=== PATIENT | male | born 1950 | race Caucasian/White ===

== ENCOUNTER 2017-02-07 02:30 | Inpatient (IN) | payer MEDICARE, BC ==
[2017-02-07] VITALS (14 sets, daily range): BP systolic 100–155; BP diastolic 57–74; PULSE 74–133; RESP 14–24; TEMP 96.9–98.7; O2SAT 91–100
[~2017-02-07] VITALS: Ht 182.9 cm; Wt 106.3 kg
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
[2017-02-07] MEDS ORDERED: ALLO100T PO (03:00)
[2017-02-07] MEDS ORDERED: VALS1TAB63 PO (03:00)
[2017-02-07] MEDS ORDERED: PRED5TAB PO (03:00)
[2017-02-07] MEDS ORDERED: ULOR80TA2 PO (03:00)
[2017-02-07] MEDS ORDERED: COLC1CAP3 PO (03:00)
[2017-02-07] MEDS ORDERED: ZOCO40TA PO (03:00)
[2017-02-07] MEDS ORDERED: METO25TA3 PO (03:00)
[2017-02-07] MEDS ORDERED: TELO250T PO (03:01)
[2017-02-07] MEDS ORDERED: DIGOXIN 0.5 MG/2 ML VIAL IV PUSH ONE (04:30)
[2017-02-07] MEDS ORDERED: SODIUM CHLORIDE 0.9% FLUSH 10 ML FLUSH IVF PRN (05:00)
[2017-02-07] MEDS ORDERED: NS + KCL 20 MEQ INJ 1,000 ML IV SCH (05:00)
[2017-02-07] MEDS ORDERED: ACETAMINOPHEN 650 MG SUPP PR PRN (05:00)
[2017-02-07] MEDS ORDERED: ONDANSETRON HCL 4 MG/2 ML VIAL IV PRN ×2 (05:00→07:15)
[2017-02-07] MEDS ORDERED: ACETAMINOPHEN 325 MG TAB PO PRN (05:00)
[2017-02-07] MEDS ORDERED: MORPHINE SULFATE 4 MG/ML INJ IV PUSH PRN (05:00)
[2017-02-07] MEDS ORDERED: MISCELLANEOUS NURSING INFORMATION XX SCH (07:15)
[2017-02-07] MEDS ORDERED: ENALAPRILAT 1.25 MG/ML VIAL IV PRN (07:15)
[2017-02-07] MEDS ORDERED: SODIUM CHLORIDE 0.9% FLUSH 10 ML FLUSH IV FLUSH PRN (07:15)
[2017-02-07] MEDS ORDERED: CHLORHEXIDINE GLUCONATE 2 % 1 PACK (2 CLOTHS) TOP PRN (07:15)
[2017-02-07] MEDS ORDERED: RESP: ALBUTEROL 2.5 MG/IPRATROPIUM 0.5 MG NEB (PRN) INH (07:15)
[2017-02-07] MEDS: RESP: ALBUTEROL 2.5 MG/IPRATROPIUM 0.5 MG NEB (SCH) NEB ×4 (08:14→20:00)
[2017-02-07] MEDS: METHOCARBAMOL 500 MG TAB PO SCH ×3 (08:16→21:37)
[2017-02-07] MEDS: FAMOTIDINE 20 MG TAB PO SCH ×2 (08:16→19:54)
[2017-02-07] MEDS: VALSARTAN 40 MG TAB PO SCH ×2 (08:16→20:02)
[2017-02-07] MEDS: predniSONE 5 MG TAB PO SCH (08:16)
[2017-02-07] MEDS: PRAVASTATIN SOD 80 MG TAB PO SCH ×2 (08:16→08:18)
[2017-02-07] MEDS: oxyCODONE/ACETAMINOPHEN 5 MG/325 MG TAB PO PRN ×2 (08:16→18:34)
[2017-02-07] MEDS: COLCHICINE 0.6 MG TAB PO SCH ×2 (08:16→08:30)
[2017-02-07] MEDS: ALLOPURINOL 100 MG TAB PO SCH (08:16)
[2017-02-07] MEDS: SODIUM CHLORIDE 0.9% FLUSH 10 ML FLUSH IV FLUSH SCH ×2 (08:17→19:55)
[2017-02-07] MEDS: LIDOCAINE HCL 5% PATCH T-DERMAL SCH (08:17)
[2017-02-07] MEDS: DOCUSATE SODIUM 50 MG/SENNA 8.6 MG TAB PO SCH ×2 (08:17→19:54)
[2017-02-07] MEDS: ULORIC 80 MG PO SCH (08:31)
[2017-02-07 09:00] LABS: BICARBONATE 20.7 MEQ/L (21.0-32.0); POTASSIUM 4.6 MEQ/L (3.5-5.1)
[2017-02-07 09:00] LABS: AUTOMATED NEUTROPHIL # 7.6 TH/MM3 (1.8-7.7); BASOPHIL % 0.2 % (0.0-2.0); EOSINOPHIL % 0.1 % (0.0-4.0); HEMATOCRIT 32.1 % (39.0-51.0); HEMO FLAGS DIFF FINAL; LYMPH % 9.1 % (9.0-44.0); LYMPHOCYTE # 0.8 TH/MM3 (1.0-4.8); MEAN CELL VOLUME 97.4 FL (80.0-100.0); MEAN CORPUSCULAR HEMOGLOBIN 31.7 PG (27.0-34.0); MEAN CORPUSCULAR HGB CONC 32.5 % (32.0-36.0); MONO % 9.3 % (0.0-8.0); NEUT % 81.3 % (16.0-70.0); PLATELET COUNT 139 TH/MM3 (150-450); RED CELL DISTRIBUTION WIDTH 14.5 % (11.6-17.2); WHITE BLOOD COUNT 9.3 TH/MM3 (4.0-11.0)
[2017-02-07] MEDS: METOPROLOL TARTRATE 25 MG TAB PO SCH (09:59)
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
--- NOTE | 2017-02-07 12:50 | RADRPT ---
EXAM DATE/TIME: 02/07/2017 10:54 [facility] COMPARISON: No previous studies available for comparison. INDICATIONS : Occlusion. MEDICAL HISTORY : Hypertension. Gout. Atrial fibrillation. Cerebrovascular accident. Hyperlipidemia. SURGICAL HISTORY : None. ENCOUNTER: Initial ACUITY: 1 day PAIN SCORE: 0/10 LOCATION: Bilateral neck PEAK SYSTOLIC VELOCITIES (cm/sec): ICA/CCA RATIO: Right: 1.2 Left: 1.3 ICA: Right: 106 Left: 124 CCA: Right: 140 Left: 116 ECA: Right: 116 Left: 143 VERTEBRAL: Right: 29 antegrade Left: 110 antegrade Elevated flow velocities and ICA/CCA ratios have been found to correlate with increased degrees of vessel stenosis, calculated as percentage of diameter relative to a normal segment of distal ICA/CCA FINDINGS: RIGHT CAROTID: No significant stenosis is visualized. There is minimal calcified plaque in the common carotid artery and there is noncalcified plaque in the carotid bulb. LEFT CAROTID: No significant stenosis is visualized. There is mild calcified and noncalcified plaque in the carotid bulb. VERTEBRAL ARTERIES: Antegrade flow is seen in both vertebral arteries. MISCELLANEOUS: None. CONCLUSION: 1. Mild carotid bulb calcification bilaterally. However, no significant stenosis is present within ei ther internal carotid artery (less than 50% stenosis). 2. There is antegrade flow within both vertebral arteries. Eh Borja MD on February 07, 2017 at 12:46 Board Certified Radiologist. This report was verified electronically.
--- NOTE | 2017-02-07 14:02 | EKG ---
Date Performed: 02/07/2017 Time Performed: 04:11:26 PTAGE: 66 years EKG: Supraventricular tachycardia, which may be a paroxysmal SVT versus atrial flutter Clinical correlation and follow-up tracings recommended ABNORMAL ECG NO PREVIOUS TRACING DOCTOR: Valeriy Hussein Interpretating Date/Time 02/07/2017 14:01:40
[2017-02-07] MEDS: chlordiazePOXIDE 25 MG CAP PO SCH ×2 (14:29→18:06)
[2017-02-07] MEDS: BACITRACIN TOP OINT 15 GM TUBE TOPICAL SCH ×2 (14:29→19:54)
[2017-02-07] MEDS: MULTIVITAMIN INJ 10 ML, THIAMINE INJ 100 MG, FOLIC ACID INJ 1 MG in SODIUM CHLORID 0.9%... IV SCH (16:09)
[2017-02-07] MEDS: MAGNESIUM HYDROXIDE SUSP 30 ML CUP PO SCH (19:55)
[2017-02-08] MEDS: oxyCODONE/ACETAMINOPHEN 10 MG/325 MG TAB PO PRN ×5 (03:20→22:02)
[2017-02-08 03:24] VITALS: BP 147/77; PULSE 68; RESP 18; TEMP 97; O2SAT 92
[2017-02-08] MEDS ORDERED: CHLORHEXIDINE GLUCONATE 2 % 1 PACK (2 CLOTHS) TOP SCH (04:00)
[2017-02-08] MEDS: METHOCARBAMOL 500 MG TAB PO SCH ×3 (05:09→22:02)
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
[2017-02-08] MEDS: RESP: ALBUTEROL 2.5 MG/IPRATROPIUM 0.5 MG NEB (SCH) NEB (07:24)
[2017-02-08 07:25] VITALS: O2SAT 95
[2017-02-08 07:45] LABS: AUTOMATED NEUTROPHIL # 4.9 TH/MM3 (1.8-7.7); BASOPHIL % 0.4 % (0.0-2.0); EOSINOPHIL # 0.1 TH/MM3 (0-0.4); EOSINOPHIL % 1.1 % (0.0-4.0); HEMO FLAGS DIFF FINAL; LYMPH % 14.8 % (9.0-44.0); LYMPHOCYTE # 0.9 TH/MM3 (1.0-4.8); MEAN CELL VOLUME 94.6 FL (80.0-100.0); MEAN CORPUSCULAR HGB CONC 33.8 % (32.0-36.0); MONO % 7.7 % (0.0-8.0); PLATELET COUNT 129 TH/MM3 (150-450); RED BLOOD COUNT 3.07 MIL/MM3 (4.50-5.90); RED CELL DISTRIBUTION WIDTH 14.1 % (11.6-17.2); WHITE BLOOD COUNT 6.4 TH/MM3 (4.0-11.0)
[2017-02-08 07:55] LABS: ALT (GPT) 27 U/L (12-78); ANION GAP 4 MEQ/L (5-15); AST (GOT) 14 U/L (15-37); BICARBONATE 26.1 MEQ/L (21.0-32.0); BLOOD UREA NITROGEN 20 MG/DL (7-18); CHLORIDE 108 MEQ/L (98-107); GLOMERULAR FILTRATION RATE 70 ML/MIN (>89); POTASSIUM 4.1 MEQ/L (3.5-5.1); SODIUM (NA) 138 MEQ/L (136-145)
[2017-02-08 07:57] LABS: ALKALINE PHOSPHATASE 42 U/L (45-117); TOTAL BILIRUBIN ADULT 0.4 MG/DL (0.2-1.0)
[2017-02-08 08:00] VITALS: BP 147/75; PULSE 71; RESP 19; TEMP 97.2; O2SAT 95
[2017-02-08] MEDS: predniSONE 5 MG TAB PO SCH (08:38)
[2017-02-08] MEDS: COLCHICINE 0.6 MG TAB PO SCH (08:39)
[2017-02-08] MEDS: VALSARTAN 40 MG TAB PO SCH ×2 (08:40→20:40)
[2017-02-08] MEDS: METOPROLOL TARTRATE 25 MG TAB PO SCH (08:40)
[2017-02-08] MEDS: ALLOPURINOL 100 MG TAB PO SCH (08:40)
[2017-02-08] MEDS: chlordiazePOXIDE 25 MG CAP PO SCH ×3 (08:40→17:40)
[2017-02-08] MEDS: FAMOTIDINE 20 MG TAB PO SCH ×2 (08:40→20:40)
[2017-02-08] MEDS: PRAVASTATIN SOD 80 MG TAB PO SCH (08:40)
[2017-02-08] MEDS: SODIUM CHLORIDE 0.9% FLUSH 10 ML FLUSH IV FLUSH SCH ×2 (08:41→20:40)
[2017-02-08] MEDS: DOCUSATE SODIUM 50 MG/SENNA 8.6 MG TAB PO SCH ×2 (08:41→20:40)
[2017-02-08] MEDS: ULORIC 80 MG PO SCH (08:42)
[2017-02-08] MEDS: LIDOCAINE HCL 5% PATCH T-DERMAL SCH (08:43)
[2017-02-08] MEDS: BACITRACIN TOP OINT 15 GM TUBE TOPICAL SCH ×2 (08:43→20:40)
[2017-02-08] MEDS ORDERED: INFLUENZA VIRUS VACCINE (QUADRIVALENT) 0.5 ML SYR IM ONE (10:00)
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
--- NOTE | 2017-02-08 11:57 | HHI.PR ---
Subjective Subjective Notes Reports rib pain and SOB while sitting on the side of the bed Has not been OOB yet Reports his PCP diagnosed him with the Flu on Wednesday and he was taking Tamiflu for it. Reports he did not have a nasal washing test at that time. Objective Vitals/I&O Vital Signs Date Time Temp Pulse Resp B/P (MAP) Pulse Ox O2 Delivery O2 Flow Rate FiO2 02/08/17 08:00 97.2 71 19 147/75 (99) 95 02/08/17 07:25 21 02/07/17 20:40 Nasal Cannula 2.00 Labs Laboratory Tests Test 02/08/17 07:21 White Blood Count 6.4 Red Blood Count 3.07 Hemoglobin 9.8 Hematocrit 29.0 Mean Corpuscular Volume 94.6 Mean Corpuscular Hemoglobin 32.0 Mean Corpuscular Hemoglobin Concent 33.8 Red Cell Distribution Width 14.1 Platelet Count 129 Mean Platelet Volume 8.5 Neutrophils (%) (Auto) 76.0 Lymphocytes (%) (Auto) 14.8 Monocytes (%) (Auto) 7.7 Eosinophils (%) (Auto) 1.1 Basophils (%) (Auto) 0.4 Neutrophils # (Auto) 4.9 Lymphocytes # (Auto) 0.9 Monocytes # (Auto) 0.5 Eosinophils # (Auto) 0.1 Basophils # (Auto) 0.0 CBC Comment DIFF FINAL Differential Comment Blood Urea Nitrogen 20 Creatinine 1.06 Random Glucose 91 Total Protein 5.8 Albumin 2.6 Calcium Level 8.2 Alkaline Phosphatase 42 Aspartate Amino Transf (AST/SGOT) 14 Alanine Aminotransferase (ALT/SGPT) 27 Total Bilirubin 0.4 Sodium Level 138 Potassium Level 4.1 Chloride Level 108 Carbon Dioxide Level 26.1 Anion Gap 4 Estimat Glomerular Filtration Rate 70 Radiology Last Impressions Chest X-Ray 02/08/17 0600 Signed Impressions: Service Date/Time: Wednesday, February 08, 2017 05:40 - CONCLUSION: 1. Subsegmental basilar airspace disease with trace pleural fluid. No pneumothorax. Wil Bautista MD Carotid Artery Ultrasound 02/07/17 0000 Signed Impressions: Service Date/Time: Tuesday, February 07, 2017 10:54 - CONCLUSION: 1. Mild carotid bulb calcification bilaterally. However, no significant stenosis is present within either internal carotid artery (less than 50%% stenosis). 2. There is antegrade flow within both vertebral arteries. Eh Borja MD Narrative Exam GENERAL: 66 year old well-nourished, well developed male lying in bed. SKIN: Warm and dry. HEAD: Normocephalic. Forehead laceration noted. ENT: No nasal bleeding or discharge. Mucous membranes pink and moist. NECK: Trachea midline. No JVD. CARDIOVASCULAR: Regular rate and rhythm. RESPIRATORY: No accessory muscle use. Lungs clear and diminished to auscultation. Breath sounds equal bilaterally. GASTROINTESTINAL: Abdomen soft, non-tender, nondistended. + BS. MUSCULOSKELETAL: Extremities without cyanosis, or edema. LEFT forearm dressing C /D/I. Ecchymosis noted to LEFT groin extending to LEFT flank. Site soft, no palpable hematoma. NEUROLOGICAL: Awake and alert. Normal speech. A/P Assessment and Plan INJURIES: LEFT rib fxs (3-5) Ecchymosis to left thigh, left hip, left arm PMHx: Afib, HLD, HTN, Gout, ETOH abuse, Arthritis Diet: Regular Pulm: IS, acapella, EZ-pap. nebs Pain: Percocet. Morphine IV. Robaxin. Lidoderm patch. Activity: OOB. PT and OT ordered GI: Pepcid BID Bowel: Rosalina-colace BID. MOM. LBM: 0 DVT: SCD's LEFT rib fxs, Ecchymosis left thigh, left hip, left arm Supportive care Pulmonary toileting Pain control OOB-PT ordered Carotid US showed Mild calcification bilaterally Monitor H&H ETOH abuse Seizure precautions MVI bag PO Librium Counselled to quit Neuropsychologist consulted Influenza? Obtain nasal wash Afebrile Denies rigors or body aches Plan of care discussed with patient, and RN at bedside. Case management consulted to assist with DC planning. Plan to DC in 1-2 days. Gianna Cruz Feb 08, 2017 11:57
[2017-02-08 12:00] VITALS: BP 108/60; PULSE 58; RESP 19; TEMP 97.4; O2SAT 92
[2017-02-08 16:00] VITALS: BP 155/77; PULSE 64; RESP 17; TEMP 97.8; O2SAT 92
[2017-02-08] MEDS ORDERED: buPROPion HCL 100 MG TAB PO SCH (16:30)
[2017-02-08] MEDS ORDERED: PILL SPLITTER OTHER PRN (16:45)
[2017-02-08] MEDS: MULTIVITAMIN INJ 10 ML, THIAMINE INJ 100 MG, FOLIC ACID INJ 1 MG in SODIUM CHLORID 0.9%... IV SCH (17:40)
[2017-02-08 20:21] VITALS: BP 142/77; PULSE 63; RESP 18; TEMP 96.8; O2SAT 95
[2017-02-08] MEDS: MAGNESIUM HYDROXIDE SUSP 30 ML CUP PO SCH (20:40)
[2017-02-09 00:11] VITALS: BP 142/75; PULSE 73; RESP 18; TEMP 97.3; O2SAT 95
[2017-02-09] MEDS: METHOCARBAMOL 500 MG TAB PO SCH ×2 (04:00→10:43)
[2017-02-09] MEDS: oxyCODONE/ACETAMINOPHEN 10 MG/325 MG TAB PO PRN ×2 (04:00→11:02)
[2017-02-09 04:26] VITALS: BP 118/71; PULSE 66; RESP 18; TEMP 97; O2SAT 95
[2017-02-09 05:46] LABS: AUTOMATED NEUTROPHIL # 4.3 TH/MM3 (1.8-7.7); BASOPHIL % 0.7 % (0.0-2.0); EOSINOPHIL # 0.1 TH/MM3 (0-0.4); EOSINOPHIL % 2.4 % (0.0-4.0); HEMATOCRIT 27.6 % (39.0-51.0); HEMO FLAGS DIFF FINAL; LYMPH % 18.7 % (9.0-44.0); LYMPHOCYTE # 1.2 TH/MM3 (1.0-4.8); MEAN CELL VOLUME 94.2 FL (80.0-100.0); MEAN CORPUSCULAR HEMOGLOBIN 32.4 PG (27.0-34.0); MEAN CORPUSCULAR HGB CONC 34.4 % (32.0-36.0); MONO % 8.4 % (0.0-8.0); NEUT % 69.8 % (16.0-70.0); PLATELET COUNT 135 TH/MM3 (150-450); RED BLOOD COUNT 2.93 MIL/MM3 (4.50-5.90); WHITE BLOOD COUNT 6.2 TH/MM3 (4.0-11.0)
[2017-02-09 06:12] LABS: ANION GAP 6 MEQ/L (5-15); AST (GOT) 17 U/L (15-37); BICARBONATE 26.6 MEQ/L (21.0-32.0); BLOOD UREA NITROGEN 15 MG/DL (7-18); CHLORIDE 104 MEQ/L (98-107); GLOMERULAR FILTRATION RATE 72 ML/MIN (>89); POTASSIUM 3.7 MEQ/L (3.5-5.1); SODIUM (NA) 137 MEQ/L (136-145)
[2017-02-09 06:13] LABS: ALT (GPT) 20 U/L (12-78)
[2017-02-09 06:15] LABS: ALKALINE PHOSPHATASE 49 U/L (45-117); TOTAL BILIRUBIN ADULT 0.3 MG/DL (0.2-1.0)
--- NOTE | 2017-02-09 06:29 | RADRPT ---
EXAM DATE/TIME: 02/09/2017 06:09 [place] COMPARISON: CHEST SINGLE AP, February 08, 2017, 5:40. INDICATIONS : Short of breath. MEDICAL HISTORY : None. SURGICAL HISTORY : None. ENCOUNTER: Subsequent ACUITY: 4 - 6 days PAIN SCORE: 0/10 LOCATION: Bilateral chest FINDINGS: A single view of the chest demonstrates subsegmental basilar air space disease. Elevated right hemidi aphragm. Findings similar to February 08. Small effusions. CONCLUSION: 1. Subsegmental basilar airspace disease with trace pleural fluid on the left. Findings similar to Se ptember 25. iWl Bautista MD on February 09, 2017 at 6:26 Board Certified Radiologist. This report was verified electronically.
[2017-02-09] MEDS ORDERED: WALKER WHEELS/F1 MIS (07:55)
[2017-02-09 08:00] VITALS: BP 136/80; PULSE 62; RESP 17; TEMP 96.8; O2SAT 100
[2017-02-09] MEDS: ALLOPURINOL 100 MG TAB PO SCH (09:00)
[2017-02-09] MEDS ORDERED: buPROPion HCL 75 MG TAB PO SCH (09:00)
[2017-02-09] MEDS: chlordiazePOXIDE 25 MG CAP PO SCH ×3 (10:43→14:34)
[2017-02-09] MEDS: METOPROLOL TARTRATE 25 MG TAB PO SCH (10:43)
[2017-02-09] MEDS: ULORIC 80 MG PO SCH (10:43)
[2017-02-09] MEDS: DOCUSATE SODIUM 50 MG/SENNA 8.6 MG TAB PO SCH (10:44)
[2017-02-09] MEDS: COLCHICINE 0.6 MG TAB PO SCH (10:45)
[2017-02-09] MEDS: PRAVASTATIN SOD 80 MG TAB PO SCH (10:45)
[2017-02-09] MEDS: predniSONE 5 MG TAB PO SCH (10:45)
[2017-02-09] MEDS: VALSARTAN 40 MG TAB PO SCH (10:45)
[2017-02-09] MEDS: FAMOTIDINE 20 MG TAB PO SCH (10:45)
[2017-02-09] MEDS: SODIUM CHLORIDE 0.9% FLUSH 10 ML FLUSH IV FLUSH SCH (10:46)
[2017-02-09] MEDS: BACITRACIN TOP OINT 15 GM TUBE TOPICAL SCH (10:49)
[2017-02-09] MEDS: LIDOCAINE HCL 5% PATCH T-DERMAL SCH (10:54)
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
[2017-02-09] MEDS ORDERED: OXYC1TAB63 PO (11:53)
[2017-02-09 12:00] VITALS: BP 151/75; PULSE 74; RESP 18; TEMP 97.4; O2SAT 93
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
[2017-02-09] MEDS ORDERED: BUPR75TA PO (14:41)
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
== END 2017-02-09 15:31 | disposition home or self-care (01) | DRG 185 ==
LOC: NEPE 02:30 → NEDA 04:21 → N03B 06:15 → N06A 18:57 → N06B 02-08 18:43
PROVIDERS: ADMIT Surgery; ATTEND Surgery
DX: S22.42XA Multiple fractures of ribs, left side, initial encounter for closed fracture (principal); I48.91 Unspecified atrial fibrillation; S70.02XA Contusion of left hip, initial encounter; I10 Essential (primary) hypertension; S70.12XA Contusion of left thigh, initial encounter; S40.022A Contusion of left upper arm, initial encounter; F10.10 Alcohol abuse, uncomplicated; E78.5 Hyperlipidemia, unspecified; M10.9 Gout, unspecified; V23.4XXA Motorcycle driver injured in collision with car, pick-up truck or van in traffic accident, initial encounter; Y92.410 Unspecified street and highway as the place of occurrence of the external cause; Z79.02 Long term (current) use of antithrombotics/antiplatelets
CPT/HCPCS: 71010; 80048; 80053; 85025; 87641; 87804; 93005; 93880; 94150; 94640; 94664; 94667; J1160; J2270; J3411; J3480; J7040; J7512